=== PATIENT | male | born 1960 | race Caucasian/White ===

== ENCOUNTER 2020-11-19 17:51 | Emergency (ER) | payer OTHER ==
[~2020-11-19] VITALS: Ht 162.6 cm; Wt 92.5 kg
[2020-11-19] MEDS ORDERED: DOPPLER MC ONE (17:55)
[2020-11-19 18:15] VITALS: BP 157/71
--- NOTE | 2020-11-19 18:19 | NUR ---
PT AMBULATED TO BED
--- NOTE | 2020-11-19 18:35 | NUR ---
60 Y/O MALE BIB DAUGHTER FOR BLOOD IN STOOL X 3 DAYS. STATES HE "FELT A FLAP A SKIN IN HIS ANUS WHEN EXAMINING HIMSELF." ALSO STATES HE IS EXPERIENCING PAIN WHILE URINATING, URINE IS YELLOW WITHOUT ODOR PER PT. ABD IS ROUNDED, SOFT, NON-TENDER. + HYPERACTIVE BOWEL SOUNDS HEARD X4 QUADRANTS. PMHX: DM, HTN, HLD NKDA
--- NOTE | 2020-11-19 19:09 | NUR ---
Pt report given to BILL. Transfer of care at this time.
--- NOTE | 2020-11-19 19:14 | NUR ---
RECEIVED REPORT FROM JIMI KEITH. TRANSFER OF CARE AT THIS TIME
[2020-11-19] MEDS ORDERED: AMOX-1000 PO (19:16)
--- NOTE | 2020-11-19 19:54 | NUR ---
Patient discharged with v/s stable. Written and verbal after care instructions given and explained. Patient verbalized understanding. Ambulatory with steady gait. All questions addressed prior to discharge. Advised to follow up with PMD. RX OF AUGMENTIN GIVEN
[2020-11-19 19:55] VITALS: BP 140/72
== END 2020-11-19 19:54 | disposition home or self-care (01) ==
LOC: MED 17:51
DX: K62.89 Other specified diseases of anus and rectum (principal); E11.9 Type 2 diabetes mellitus without complications; I10 Essential (primary) hypertension; E78.5 Hyperlipidemia, unspecified; Z79.899 Other long term (current) drug therapy
CPT/HCPCS: 99283